=== PATIENT | male | born 1980 | race African-American/Black ===

== ENCOUNTER → 2016-07-24 | Outpatient (REF) ==
--- NOTE | 2016-07-24 11:05 | REP ---
CERVICAL SPINE SERIES: Seven views. HISTORY: Degenerative disc disease. Disability. FINDINGS: Lateral views done in flexion/extension show straightening and limited range of motion but no instability. Vertebral body heights are preserved. There is degenerative disc narrowing at C5-6 and C4-5 with early osteophyte formation anteriorly. Early discogenic spurring is seen at C6-7 as well oblique images demonstrate intact neural foramen normally aligned facets bilaterally at each level. AP and open mouth odontoid views are unremarkable. IMPRESSION: Mild degenerative disc changes. Straightening and limited range of motion on flexion/extension views. Signed by Tanmay Garrido MD 07/24/2016 08:10 P
--- NOTE | 2016-07-24 11:14 | REP ---
Right shoulder series: Three views. History: Degenerative disease. Disability. Findings: The right glenohumeral and acromioclavicular joints are normally aligned. No bony erosive changes seen. Periarticular soft tissues are unremarkable. Impression: Negative right shoulder views. Signed by Tanmay Garrido MD 07/24/2016 08:10 P
--- NOTE | 2016-07-24 11:15 | REP ---
Lumbar spine series: Five views. History: Disability. Degenerative disc disease. Findings: Lumbar vertebral body heights are preserved. Alignment is normal. Pedicles and posterior elements are intact. There is no evidence of spondylolysis or spondylolisthesis. There is minimal disc narrowing at L4-5. No bony destructive lesion is seen. Sacrum and SI joints are intact. Psoas margins are symmetric. Impression: Minimal disc narrowing at L4-5 otherwise negative lumbar spine series. Signed by Tanmay Garrido MD 07/24/2016 08:10 P
--- NOTE | 2016-07-24 11:18 | REP ---
Left hip: Two views. History: Degenerative disc disease. Disability. Findings: AP and frog-leg views of the left hip demonstrate smooth rounded femoral head and intact hip joint space. Periarticular soft tissues are unremarkable. The left hemipelvis is intact. SI joint and symphysis pubis appear intact Impression: Negative radiographs of the left hip. Signed by Tanmay Garrido MD 07/24/2016 08:11 P
--- NOTE | 2016-07-24 11:19 | REP ---
Bilateral knee series: Nine views. History: Disability. Degenerative disease. Findings: Five views of each knee demonstrate normal bones, joints, and soft tissues. There is no evidence of erosive change, joint space narrowing, or joint effusion. Impression: Normal bilateral knee radiographs. Signed by Tanmay Garrido MD 07/24/2016 08:11 P
== END ==
LOC: M SMT 09:48
PROVIDERS: ATTEND Internal Medicine
DX: Z02.71 Encounter for disability determination (principal)